=== PATIENT | female | born 1995 | race Caucasian/White ===

== ENCOUNTER 2020-02-05 11:40 | Emergency (ER) | payer SELFPAY ==
[2020-02-05] MEDS ORDERED: Sodium Chloride 0.9% 1,000 ML IV ONE (11:43)
--- NOTE | 2020-02-05 11:47 | EDM.PDOC ---
ED HPI GENERAL MEDICAL PROBLEM - General Chief Complaint: Gastrointestinal Problem Stated Complaint: NAUSEA,VOMITING Time Seen by Provider: 02/05/20 11:42 Source of Information: Reports: Patient History Limitations: Reports: No Limitations - History of Present Illness INITIAL COMMENTS - FREE TEXT/NARRATIVE: HISTORY AND PHYSICAL: History of present illness: Patient is a 24-year-old female who presents to the emergency room with complaints of nausea and dizziness over the past week. She believes this is related as she took a home test earlier this past week which was positive. She believes she could be 1 to 2 months , she has not had a menstrual period in approximately a year, since the vaginal delivery of her child. 2, para 1. No delivery related complications. States her baby was born with a heart defect, she attributes to her using Zofran early in her . She is originally from [place], she is in [place] as her s ignificant other is working, does not have an CORE DRIER established. She states she has had bouts of nausea with one episode of vomiting earlier this past week. Occasionally does feel dizzy with sudden movement change. She has had intermittent abdominal cramping and low back pain without vaginal bleeding or discharge. Her main reason for visit today is the nausea. Patient denies any fever, chills, headache, change in vision, syncope or near syncope. Denies any chest pain, back pain, shortness of breath or cough. Denies any abdominal pain, vomiting, diarrhea, constipation or dysuria. Has not noted any blood in urine or stool. Patient has been eating and drinking appropriately. Review of systems: As per history of present illness and below otherwise all systems reviewed and negative. Past medical history: As per history of present illness and as reviewed below otherwise noncontributory. Surgical history: As per history of present illness and as reviewed below otherwise noncontrib utory. Social history: See social history for further information Family history: As per history of present illness and as reviewed below otherwise noncontributory. Physical exam: General: Well-developed and well-nourished 24-year-old female. Alert and oriented. Nontoxic-appearing and in no acute distress. HEENT: Atraumatic, normocephalic, pupils equal and reactive bilaterally, negative for conjunctival pallor or scleral icterus, mucous membranes moist, trachea midline. No drooling or trismus noted. No meningeal signs. No hot potato voice noted. Lungs: Clear to auscultation, breath sounds equal bilaterally, chest nontender. Heart: S1S2, regular rate and rhythm without overt murmur Abdomen: Soft, nondistended, nontender. Negative for masses or hepatosplenomegaly. Negative for costovertebral tenderness. Pelvis: Stable nontender. Skin: Intact, warm, dry. No lesions or rashes noted. Extremities: Atraumatic, moves all extremities per self without difficulty or deficits, negative for cords or calf pain. Neurovascular unremarkable. Neuro: Awake, alert, oriented. Cranial nerves II through XII unremarkable. Cerebellum unremarkable. Motor and sensory unremarkable throughout. Exam non focal. Notes: There was a delay in getting to the ultrasound as initially the patient did not want a male technical training coordinator. After receiving the patient's lab work her quant is 118, 769, a external ultrasound can be performed. She did agree for the technical training coordinator to perform this, showing IUP with gestation of 7 weeks and 3 days. Lab was otherwise unremarkable. We did discuss antinausea medications, she does not want any Zofran. She is questioning whether or not I would prescribe Phenergan which I am not going to prescribe until she is seen by an CORE DRIER/establishes care. We will give her a prescription for Diclegis and we discussed/reviewed supportive care measures. Voices understanding and is agreeable to plan of care. Denies any further questions or concerns at this time. Diagnostics: CBC, CMP, UA, HCGU, Quant HCG, 1st trimester U/S Therapeutics: IV fluids Prescription: Diclegis Impression: Nausea in Plan: 1. Your lab work is within normal limits. Your ultrasound/labs puts you around 7 weeks and 3 days. Please start and/or continue to take your vitamin with folic acid once daily. Diclegis (combo med of Vitamin B6 and Unisome) has been prescribed for you, you can take a max of 4 tabs daily. It's recommended 1- 2 tabs before bed. If needed you can take one in the morning and a second dose in the afternoon - IF NEEDED. 2. Tylenol as needed for pain management. 4. Follow up with an CORE DRIER to establish care as we discussed. Return to the ED as needed and as discussed. Definitive disposition and diagnosis as appropriate pending reevaluation and review of above. - Related Data Allergies Allergy/AdvReac Type Severity Reaction Status Date / Time No Known Allergies Allergy Verified 02/05/20 11:53 Home Meds: Home Meds Doxylamine Succinate/Vit B6 [Dicjennifer Dos Santos 10-10 mg Tablet] 1 each PO ASDIRECTED #20 tablet. 02/05/20 [Rx] Pnv No.95/Ferrous Fum/Folic AC [ Vitamin Tablet] 1 each PO DAILY 02/05/20 [History] ED ROS GENERAL - Review of Systems Review Of Systems: Comprehensive ROS is negative, except as noted in HPI. ED EXAM, GI/ABD - Physical Exam Exam: See Below (See dictation) Course - Vital Signs Last Recorded V/S: Last Vital Signs Temp 96.8 F L 02/05/20 11:53 Pulse 78 02/05/20 11:53 Resp 17 02/05/20 11:53 BP 110/60 02/05/20 11:53 Pulse Ox 98 02/05/20 11:53 Orthostatic Blood Pressure [ 95/61 Standing] Orthostatic Blood Pressure [ 108/67 Sitting] Orthostatic Blood Pressure [ 98/56 Supine] - Orders/Labs/Meds Orders: Active Orders 24 hr Category Date Time Status Orthostatic Vital Signs [RC] ASDIRECTED Care 02/05/20 11:57 Active Labs: Laboratory Tests 02/05/20 02/05/20 02/05/20 Range/Units 11:59 11:59 12:13 WBC 7.43 (4.0-11.0) K/uL RBC 4.26 L (4.30-5.90) M/uL Hgb 12.8 (12.0-16.0) g/dL Hct 37.7 (36.0-46.0) % MCV 88.5 (80.0-98.0) fL MCH 30.0 (27.0-32.0) pg MCHC 34.0 (31.0-37.0) g/dL RDW Std Deviation 38.9 (28.0-62.0) fl RDW Coeff of Homero 12 (11.0-15.0) % Plt Count 257 (150-400) K/uL MPV 9.80 (7.40-12.00) fL Neut % (Auto) 67.8 (48.0-80.0) % Lymph % (Auto) 26.2 (16.0-40.0) % [place] % (Auto) 5.5 (0.0-15.0) % Eos % (Auto) 0.4 (0.0-7.0) % Baso % (Auto) 0.1 (0.0-1.5) % Neut # (Auto) 5.0 (1.4-5.7) K/uL Lymph # (Auto) 2.0 (0.6-2.4) K/uL [place] # (Auto) 0.4 (0.0-0.8) K/uL Eos # (Auto) 0.0 (0.0-0.7) K/uL Baso # (Auto) 0.0 (0.0-0.1) K/uL Nucleated RBC % 0.0 /100WBC Nucleated RBCs # 0 K/uL Sodium (136-145) mmol/L Potassium (3.5-5.1) mmol/L Chloride (98-107) mmol/L Carbon Dioxide (21.0-32.0) mmol/L BUN (7.0-18.0) mg/dL Creatinine (0.6-1.0) mg/dL Est Cr Clr Drug Dosing mL/min Estimated GFR (MDRD) ml/min Glucose (74-106) mg/dL Calcium (8.5-10.1) mg/dL Total Bilirubin (0.2-1.0) mg/dL AST (15-37) IU/L ALT (14-63) IU/L Alkaline Phosphatase (46-116) U/L Total Protein (6.4-8.2) g/dL Albumin (3.4-5.0) g/dL Globulin (2.6-4.0) g/dL Albumin/Globulin Ratio (0.9-1.6) HCG, Quant mIU/mL Urine Color YELLOW Urine Appearance CLEAR Urine pH 6.0 (5.0-8.0) Ur Specific [place] 1.025 (1.001-1.035) Urine Protein NEGATIVE (NEGATIVE) mg/dL Urine Glucose (UA) NEGATIVE (NEGATIVE) mg/dL Urine Ketones NEGATIVE (NEGATIVE) mg/dL Urine Occult Blood NEGATIVE (NEGATIVE) Urine Nitrite NEGATIVE (NEGATIVE) Urine Bilirubin NEGATIVE (NEGATIVE) Urine Urobilinogen 0.2 (<2.0) EU/dL Ur Leukocyte Esterase NEGATIVE (NEGATIVE) Urine HCG, Qual POSITIVE (NEGATIVE) 02/05/20 02/05/20 Range/Units 12:13 12:13 WBC (4.0-11.0) K/uL RBC (4.30-5.90) M/uL Hgb (12.0-16.0) g/dL Hct (36.0-46.0) % MCV (80.0-98.0) fL MCH (27.0-32.0) pg MCHC (31.0-37.0) g/dL RDW Std Deviation (28.0-62.0) fl RDW Coeff of [place]ero (11.0-15.0) % Plt Count (150-400) K/uL MPV (7.40-12.00) fL Neut % (Auto) (48.0-80.0) % Lymph % (Auto) (16.0-40.0) % [place] % (Auto) (0.0-15.0) % Eos % (Auto) (0.0-7.0) % Baso % (Auto) (0.0-1.5) % Neut # (Auto) (1.4-5.7) K/uL Lymph # (Auto) (0.6-2.4) K/uL [place] # (Auto) (0.0-0.8) K/uL Eos # (Auto) (0.0-0.7) K/uL Baso # (Auto) (0.0-0.1) K/uL Nucleated RBC % /100WBC Nucleated RBCs # K/uL Sodium 137 (136-145) mmol/L Potassium 3.5 (3.5-5.1) mmol/L Chloride 103 (98-107) mmol/L Carbon Dioxide 23.5 (21.0-32.0) mmol/L BUN 9 (7.0-18.0) mg/dL Creatinine 0.5 L (0.6-1.0) mg/dL Est Cr Clr Drug Dosing 142.87 mL/min Estimated GFR (MDRD) > 60.0 ml/min Glucose 89 (74-106) mg/dL Calcium 8.4 L (8.5-10.1) mg/dL Total Bilirubin 0.6 (0.2-1.0) mg/dL AST 11 L (15-37) IU/L ALT 13 L (14-63) IU/L Alkaline Phosphatase 69 (46-116) U/L Total Protein 7.0 (6.4-8.2) g/dL Albumin 3.6 (3.4-5.0) g/dL Globulin 3.4 (2.6-4.0) g/dL Albumin/Globulin Ratio 1.1 (0.9-1.6) HCG, Quant 639042.0 mIU/mL Urine Color Urine Appearance Urine pH (5.0-8.0) Ur Specific [place] (1.001-1.035) Urine Protein (NEGATIVE) mg/dL Urine Glucose (UA) (NEGATIVE) mg/dL Urine Ketones (NEGATIVE) mg/dL Urine Occult Blood (NEGATIVE) Urine Nitrite (NEGATIVE) Urine Bilirubin (NEGATIVE) Urine Urobilinogen (<2.0) EU/dL Ur Leukocyte Esterase (NEGATIVE) Urine HCG, Qual (NEGATIVE) Meds: Medications Discontinued Medications Generic Name Dose Route Start Last Admin Trade Name Freq PRN Reason Stop Dose Admin Sodium Chloride 1,000 mls @ 999 mls/hr 02/05/20 11:43 02/05/20 12:15 Normal Saline IV 02/05/20 12:43 999 mls/hr STAT ONE Administration Ondansetron HCl 4 mg 02/05/20 12:08 Zofran Odt PO 02/05/20 12:09 ONETIME ONE Departure - Departure Time of Disposition: 14:46 Disposition: Home, Self-Care 01 Clinical Impression: Nausea/vomiting in - Discharge Information Prescriptions: Doxylamine Succinate/Vit B6 [Arpita Dos Santos 10-10 mg Tablet] 1 each PO ASDIRECTED #20 tablet. Instructions: Morning Sickness, [id number] Referrals: PCP,None [Primary Care Provider] - Forms: ED Department Discharge Additional Instructions: The following information is given to patients seen in the emergency department who are being discharged to home. This information is to outline your options for follow-up care. We provide all patients seen in our emergency department with a follow-up referral. The need for follow-up, as well as the timing and circumstances, are variable depending upon the specifics of your emergency department visit. If you don't have a primary care physician on staff, we will provide you with a referral. We always advise you to contact your personal physician following an emergency department visit to inform them of the circumstance of the visit and for follow-up with them and/or the need for any referrals to a consulting specialist. The emergency department will also refer you to a specialist when appropriate. This referral assures that you have the opportunity for follow-up care with a specialist. All of these measure are taken in an effort to provide you with optimal care, which includes your follow-up. Under all circumstances we always encourage you to contact your private physician who remains a resource for coordinating your care. When calling for follow-up care, please make the office aware that this follow-up is from your recent emergency room visit. If for any reason you are refused follow-up, please contact the [facility] Emergency Department at and asked to speak to the emergency department charge nurse. [facility] Primary Care: [facility] [address] [place] [id number] [facility] [address] [place] [id number] Thank you for choosing the [facility] emergency department in [place] for your medical needs today. It was a pleasure caring for you. You were seen in the emergency department for nausea/vomiting in . 1. Your lab work is within normal limits. Your ultrasound/labs puts you around 7 weeks and 3 days. Please start and/or continue to take your vitamin with folic acid once daily. Diclegis (combo med of Vitamin B6 and Unisome) has been prescribed for you, you can take a max of 4 tabs daily. It's recommended 1- 2 tabs before bed. If needed you can take one in the morning and a second dose in the afternoon - IF NEEDED. 2. Tylenol as needed for pain management. 4. Follow up with an CORE DRIER to establish care as we discussed. Return to the ED as needed and as discussed. Sepsis Event Note (ED) - Focused Exam Vital Signs: Vital Signs Temp Pulse Resp BP Pulse Ox 02/05/20 11:53 96.8 F L 78 17 110/60 98 - My Orders Last 24 Hours: My Active Orders 02/05/20 11:57 Orthostatic Vital Signs [RC] ASDIRECTED - Assessment/Plan Last 24 Hours: My Active Orders 02/05/20 11:57 Orthostatic Vital Signs [RC] ASDIRECTED
[2020-02-05] MEDS ORDERED: Ondansetron 4 MG Tab.DIS PO ONE (12:08)
[2020-02-05 12:54] LABS: BLOOD UREA NITROGEN,BUN 9 mg/dL (7.0-18.0); CARBON DIOXIDE,CO2 23.5 mmol/L (21.0-32.0); CHLORIDE,CL 103 mmol/L (98-107); GLUCOSE RANDOM 89 mg/dL (74-106); POTASSIUM,K 3.5 mmol/L (3.5-5.1); SODIUM,NA 137 mmol/L (136-145)
--- NOTE | 2020-02-05 15:04 | US ---
1st trimester obstetrical ultrasound: Multiple real-time images were obtained transabdominally. Comparison: No previous obstetrical imaging is available. Dates: Current ultrasound: [facility] 09/20/20, gestational age 7 weeks 3 days Single intrauterine gestation is seen. Amniotic fluid volume is normal. Small embryo is seen. Maternal ovaries appear within normal limits. No free fluid is seen. Measurements: [place]-rump length: 1.19 cm - 7 weeks 3 days Heart rate: 158 bpm Impression: 1. Single intrauterine gestation. Dates as noted above. 2. No complicating process is seen by ultrasound. Diagnostic code #1 This report was dictated in MDT
== END 2020-02-05 15:22 | disposition home or self-care (01) ==
LOC: MW.ED 11:40
DX: O21.9 Vomiting of pregnancy, unspecified (principal); Z3A.01 Less than 8 weeks gestation of pregnancy
CPT/HCPCS: 36415; 76801; 80053; 81003; 81025; 84702; 85025; 96360; 99284; J7030; 99282